=== PATIENT | male | born 1970 | race Native Hawaiian/Other Pacific Islander ===

== ENCOUNTER 2016-10-22 09:43 | Emergency (ER) | payer BC ==
[~2016-10-22] VITALS: Ht 182.9 cm; Wt 113.4 kg
[2016-10-22 10:38] LABS: PLATELET COUNT 306 K/uL (142-355)
[2016-10-22 11:04] LABS: POTASSIUM 4.4 mmol/L (3.6-5.2); SODIUM 135 mmol/L (136-145)
== END 2016-10-22 11:35 | disposition home or self-care (01) ==
LOC: ED 09:43
PROVIDERS: Emergency Medicine
DX: R06.00 Dyspnea, unspecified (principal); J45.901 Unspecified asthma with (acute) exacerbation; J20.9 Acute bronchitis, unspecified
CPT/HCPCS: 36415; 80053; 82550; 83880; 84484; 85027; 93005; 99283